=== PATIENT | female | born 2000 ===

== ENCOUNTER 2025-02-21 12:16 | Outpatient (AMB) | payer OTHER, SELFPAY ==
--- NOTE | 2025-02-21 12:34 | AM.OFFWIN_ITS ---
Intake Vital Signs 02/21/25 12:42 Height 5 ft 1 in Weight 105 lb BMI 19.8 BP 132/70 Blood Pressure Location Rt brachial Position Sitting Pulse 133 H Pulse Source Pulse Oximeter Temp 98.2 F Temp Source Oral Pulse Oximetry (%) 98 Oxygen Delivery Method Room Air Intake Visit Reasons: [employer] Tick bite Allergies amoxicillin Allergy (Mild, Verified 02/21/25 12:46) Rash Do you need a note to return to daycare/school/sports/work: No HPI HPI Comments History of Present Illness Details History - The patient is a 24-year-old female pr esenting with concerns of a tick bite. - The patient noticed a tick on her skin approximately two hours prior to the visit. - The tick was described as the size of a poppy seed and was still moving when removed. - The patient did not observe any blood or bloating in the tick, suggesting it had not bitten deeply. - The patient expressed concern about Ly me disease but was reassured as there was no evidence of skin penetration by the tick. - She denies bleeding, fever, chills, ra shes, joint pain, or other bites. Physical Exam General: Cooperative, healthy appearing, comfortable, no acute distress and well developed Respiratory: Normal respiratory effort and able to speak in complete sentences. Skin: Small less than a cm superficial spot noted on the right pelvic brim. No open area noted. No bleeding noted. No TTP of the area. Patient was informed and verbally consented to the use of an ambient scribe for clinic note documentation during this visit. Review of Systems Const All systems reviewed & are unremarkable except as noted in HPI and below Physical Exam Vital Signs: Last Vital Signs Temp 98.2 F 02/21/25 12:42 Pulse 133 H 02/21/25 12:42 BP 132/70 02/21/25 12:42 Pulse Ox 98 02/21/25 12:42 Oxygen Delivery Method Room Air 02/21/25 12:42 BMI result Body Mass Index 19.8 Assessment & Plan Assessment & Plan (1) Tick bite: Code(s): W57.XXXA - Bitten or stung by nonvenomous insect and other nonvenomous arthropods, initial encounter Qualifiers: Encounter type: initial encounter Site of tick bite: pelvic region Qualified Code(s): S30.860A - Insect bite (nonvenomous) of lower back and pelvis, initial encounter; W57.XXXA - Bitten or stung by nonvenomous insect and other nonvenomous arthropods, initial encounter Plan Most likely tick exposure 1. Tick Bite - Monitor for symptoms such as bullseye rash, fever, chills, body aches, or joint pain. - No prophylactic treatment for Lyme disease was deemed necessary as there was no evidence of skin penetration by the tick. Coding Level of Care Code New Pt Level 3 (83815) Diagnoses Tick bite of pelvic region, initial encounter S30.860A; W57.XXXA Encounter type: initial encounter Site of tick bite: pelvic region
[2025-02-21 12:42] VITALS: BP 132/70; PULSE 133; TEMP 36.8; O2SAT 98; BMI 19.8
--- OUTSIDE RECORDS SUMMARY | 2025-02-21 13:28 | XMS_ITS | Data Portability ---
Author Organization [facility], [address] Address [address] [place] [address] Assessment Encounter Date Assessment Date Assessment LastModified by Organization Details LastModified Time 12/17/2023 12/17/2023 Please obtain imaging of right hand Please take ibuprofen and tylenol as needed for pain [email or web address] Not available 12/17/2023 20:07:45 Plan of Treatment Reminders Order Date Submit Date Provider Last Modified By Organization Details Last Modified Time Details Appointments None recorded. Lab None recorded. [facility] 14:49:54 Procedures None recorded. Surgeries None recorded. Imaging XR, hand, 3 or more view 2023 024 [email or web address], [address] [place] [address], [address], 4 08:25:05 XR, hand, 3 or more view - right hand , right pinky finger pain, injury, bruising and obvious deformity 2023 024 [email or web address] [place], [address] [facility], [address], [address], 4 08:25:05 Medication Orders fexofenadi ne-pseudoe phedrine ER 180 mg-240 mg tablet,ext .release 24 hr 2022 023 [facility], [address] [place], [address], 4 19:18:29 prednisone 20 mg tablet 2022 023 [facility], [address] [place], [address], 19:18:31 Allergy Relief (fluticaso ne) 50 mcg/actuat ion nasal spray,susp ension 2022 023 [facility], [address] [place], [address], 19:18:26 Patient TargetsNo targets recorded. Patient Instructions Encounter Date Encounter Id Patient Instructions Last Modified By Organization Details Last Modified Time 02/09/2023 [id number] earache: care instructions [email or web address] Not available 02/09/2023 09:15:16 ear infection (otitis media): care instructions Not available 02/09/2023 09:15:16 Sinusitis is an infection of the lining of the sinus cavities in your head. Sinusitis often follows a cold. It causes pain and pressure in your head and face. In most cases, sinusitis gets better on its own in 1 to 2 weeks. But some mild symptoms may last for several weeks. Sometimes antibiotics are needed. if you are having problems. It's also a good idea to know your test results and keep a list of the medicines you take. How can you care for yourself at home? Take an worc-phn-tkgkfry pain medicine. Avoid Ibuprofen, Aleve and Aspirin if . If the doctor prescribed antibiotics, take them as directed. Do not stop taking them just because you feel better. You need to take the full course of antibiotics. Be careful when taking ltgz-rte-fgzjjjh cold or influenza (flu) medicines and Tylenol at the same time. Many of these medicines have acetaminophen, which is Tylenol. Read the labels to make sure that you are not taking more than the recommended dose. Too much acetaminophen (Tylenol) can be harmful. Breathe warm, moist air from a steamy shower, a hot bath, or a sink filled with hot water. Avoid cold, dry air. Using a humidifier in your home may help. Follow the directions for cleaning the machine. Use saline (saltwater) nasal washes. This can help keep your nasal passages open and wash out mucus and bacteria. You can buy saline nose drops at a grocery store or drugstore. Or you can make your own at home by adding 1 teaspoon (5 millilitres) of salt and 1 teaspoon (5 millilitres) of baking soda to 2 cups (500 mL) of distilled water. If you make your own, fill a bulb syringe with the solution, insert the tip into your nostril, and squeeze gently. Blow your nose. Put a hot, wet towel or a warm gel pack on your face 3 or 4 times a day for 5 to 10 minutes each time. Try a decongestant nasal spray like oxymetazoline (Drixoral). Do not use it for more than 3 days in a row. Using it for more than 3 days can make your congestion worse. 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 Procedures Surgical History Date Name Laterality Status Provider Name and Address Organization Details Recorded Time procedure on wrist completed IKE STARK PA - [facility] 02/09/2023 08:30:37 procedure on lower leg completed IKE STARK PA - [facility] 02/09/2023 08:30:59 Imaging Results None recorded. Procedure Notes None recorded. Medical Equipment None Reported. Allergies Allergen ID Allergen Name Allergen Category Reaction Reaction Severity Criticality Documentation Date Start Date Code Code System Note Provider Name and Address Organization Details Recorded Time 347690 amoxicill in medicatio n rash Not available Not available 02/09/2023 723 RxNorm IKE STARK [facility] PA - [facility] 3 08:29:37 Medications Name Sig Start Date Stop Date Status Note LastModified by Organization Details LastModified Time prednisone 20 mg tablet Take 2 tablets every day by oral route with meals for 3 days. 12/16 completed Not Available Not Available Not Available fexofenadin e-pseudoeph edrine ER 180 mg-240 mg tablet,ext. release 24 hr Take 1 tablet every day by oral route in the evening for 10 days. 12/16 completed Not Available Not Available Not Available rizatriptan 10 mg prn migraines active Not Available Not Available No t Available Ventolin HFA active Not Available Not Available Not Available (21) active Not Available Not Available Not Available Allergy Relief (fluticason e) 50 mcg/actuati on nasal spray,suspe nsion [place] 1 spray every day by intranasa l route as directed for 30 days. 12/16 completed Not Available Not Available Not Available Vitals Date Recorded Body height Body mass index (BMI) Body weight Respiratory rate Body temperature Oxygen saturation Oxygen saturation in Arterial blood by Pulse oximetry Heart rate Systolic blood pressure Diastolic blood pressure Provider Name and Address Organization Details Last Updated DateTime 4 160.02 cm 20.4 kg/m2 07774.1 2 g 16 /min 97.7 [degF] 100 % 100 % 80 /min 117 mm[Hg] 70 mm[Hg] RO WEBSTER PA - [facility] 4 19:21:03 Date Recorded Body height Body mass index (BMI) Body weight Oxygen saturation Oxygen saturation in Arterial blood by Pulse oximetry Heart rate Respiratory rate Body temperature Systolic blood pressure Diastolic blood pressure Provider Name and Address Organization Details Last Updated DateTime 3 160.02 cm 20.4 kg/m2 87715.1 2 g 100 % 100 % 86 /min 18 /min 97.9 [degF] 121 mm[Hg] 82 mm[Hg] IKE STARK [facility] 3 08:33:57 Social History Question Answer Notes LastModified by [employer] Details LastModified Time Tobacco Smoking Status Never Smoker IKE rider [facility] 02/09/2023 08:31:38 Have You Had Direct Contact, Or Contact During Intimacy, With Monkeypox Rash, Scabs, Or Body Fluids From A Person With Monkeypox? No Information not available 02/09/2023 Have You Recently Traveled Abroad? No Information not available 02/09/2023 Are You Currently In School? Yes Information not available 02/09/2023 Sex: Unknown Functional Status Question Answer Note LastModified by [employer] Details LastModified Time Do you use any illicit or recreational drugs? No Information not available 02/09/2023 Do you or have you ever used any other forms of tobacco or nicotine? No Information not available 02/09/2023 What is your level of alcohol consumption? None Information not available 02/09/2023 Are you currently employed? Yes Information not available 02/09/2023 Mental Status None recorded. Family History Relationship Description Onset Age of this Age Resolved Age Notes LastModified by Organization Details LastModified Time Father No current problems or disability Not available 03/2023 08:30:26 Mother No current problems or disability Not available 03/2023 08:30:26 Medical History No medical history recorded. Gynecological History Statement/Question Response Date of LMP 12/04/2023 Is there any chance of ? No LMP Definite Obstetrics History GPAL:G 0 P 0 0 0 0 Immunizations Vaccine Type Date Status Note Provider Nam e and Address Organization Details Recorded Time meningococcal B, recombinant 1 completed IKE GOODANGIEND null, PA - [facility] 02/09/2023 08:29:29 meningococcal B, recombinant 2 completed IKE ELKINSND null, PA - [facility] 02/09/2023 08:29:29 HPV9 3 completed IKE ELKINSND null, PA - [facility] 02/09/2023 08:29:29 HPV9 2 completed IKE STARK null, PA - [facility] 02/09/2023 08:29:29 Influenza, MDCK, quadrivalent, PF 8 completed IKE STARK null, PA - [facility] 02/09/2023 08:29:29 COVID-19, mRNA, LNP-S, PF, 30 mcg/0.3 mL dose 2 completed IKE ELKINSND null, PA - [facility] 02/09/2023 08:29:29 COVID-19, mRNA, LNP-S, PF, 30 mcg/0.3 mL dose 1 completed IKE WICKHIND null, PA - [facility] 02/09/2023 08:29:29 COVID-19, mRNA, LNP-S, PF, 30 mcg/0.3 mL dose 1 completed IKE ELKINSND null, PA - [facility] 02/09/2023 08:29:29 COVID-19, mRNA, LNP-S, bivalent, PF, 30 mcg/0.3 mL dose 2 completed IKE ELKINSND null, PA - [facility] 02/09/2023 08:29:29 Hep A, ped/adol, 2 dose 5 completed IKE ELKINSND null, PA - [facility] 02/09/2023 08:29:29 Hep A, ped/adol, 2 dose 6 completed IKE STARK null, PA - [facility] 02/09/2023 08:29:29 meningococcal MCV4P 8 completed IKE STARK null, PA - [facility] 02/09/2023 08:29:29 Influenza, split virus, quadrivalent, PF 9 completed IKE STARK null, PA - [facility] 02/09/2023 08:29:29 Influenza, split virus, quadrivalent, PF 0 completed IKE STARK null, PA - [facility] 02/09/2023 08:29:29 Influenza, split virus, quadrivalent, PF 1 completed IKE STARK null, PA - [facility] 02/09/2023 08:29:29 Influenza, split virus, quadrivalent, PF 2 completed IKE STARK null, PA - [facility] 02/09/2023 08:29:29 Influenza, split virus, quadrivalent, PF 5 completed IKE STARK null, PA - [facility] 02/09/2023 08:29:29 Influenza, split virus, quadrivalent, PF 7 completed IKE STARK null, PA - [facility] 02/09/2023 08:29:29 Influenza, split virus, quadrivalent, PF 6 completed IKE ELKINSND null, PA - [facility] 02/09/2023 08:29:29 Past Encounters Encounter ID Performer Location Encounter Start Date Encounter Closed Date Diagnosis/Indication Diagnosis SNOMED-CT Code Diagnosis ICD10 Code Diagnosis Note [id number] [address] [place] [address] 09/21/2016 18:12:39 09/21/2016 19:13:58 [id number] [address] [place] [address] 06/18/2016 18:18:55 06/18/2016 19:05:48 [id number] [address] [place] [address] 06/21/2016 16:27:05 06/21/2016 16:47:15 [id number] [address] [place] [address] 05/16/2022 09:41:22 05/16/2022 10:05:37 [id number] [address] [place] [address] 06/12/2020 14:24:46 06/12/2020 15:46:09 [id number] [address] [place] [address] 10/06/2019 11:28:14 10/06/2019 11:57:46 [id number] [address] [place] [address] 11/18/2019 09:14:26 11/18/2019 09:46:15 [id number] [address] [place] [address] 10/17/2019 08:53:30 10/17/2019 09:19:33 [id number] [address] [place] [address] 10/09/2019 08:52:36 10/09/2019 09:38:37 [id number] [address] [place] [address] 11/17/2019 11:35:44 11/17/2019 12:12:01 [id number] [address] [place] [address] 09/09/2019 08:49:40 09/09/2019 09:22:33 [id number] Nicolas Mathew NP [address] [place] [address] 02/09/2023 08:11:58 02/09/2023 09:22:25 Acute sinusitis 72562566 J01.90 [id number] [place] [address] [place] [address] 12/17/2023 17:55:49 12/21/2023 14:49:53 Injury of finger 81236826 S69.91XA Pain in finger 23723696 M79.644 Health Concerns Section Related Observation LastModified by Organization Detai ls LastModified Time None Recorded Concern Status LastModified by Organization Details LastModified Time None Recorded Advance Directives Directive None Recorded Payers Insurance Date Sequence Insurance Name Policy Number Policy Flowers Covered Member ID Flowers Member ID Guarantor Name 12/17/2023 1 [facility] (MEDICAID REPLACEMENT - HMO) JALENO Ca Maria [id number] Ca Maria 12/17/2023 1 [facility] [employer] [facility] TOGETHER WITH [facility] (MEDICAID HMO) [id number] Ca Maria [id number] Ca Maria 12/17/2023 2 [facility] PLAN (MEDICAID HMO) Ca Maria [id number] Ca Maria Notes Date Note Type Note Provider Name and Address Organization Details Recorded Time 02/09/2023 text/html CongestionReport ed bypatient.Notes:nasal congestion with post nasal drip x 3 days. denies nay fever or fever with chills. no SOB or respiratory distress.Ear Pain Brief HPIReported bypatient.Location:pain radiates to neck; bilateral Onset/Timing:intermitte nt pain; gradual onset Duration:occurs daily; sensation/episode variable length Quality:aching pain;sharp pain Severity:getting worse; current pain 5/10 Context:recent ear infection Alleviating factors:ototopical antibiotics: ; nasal steroid spray Aggravating factors:sinus infections; allergies; irrigation of ear Associated Symptoms:Cough;nasal congestion;nasal discharge Nicolas Mathew NP [address] [place], [address], [place] - [facility] 02/09/2023 09:15:38 12/17/2023 text/html Finger PainRepor rommel bypatient.source of patient nincuiagnfe1ab finger pain laceration, bruising was playing lacrose, was stuck by another player has mild pain, no tingling or numbness to tip of pinky finger Locationlocation: right; [place];proximal phalanx; pain, deformity, bruising proximal aspect Neurovascular Status:color change in affected finger; no numbness or tingling Symptoms:pain with ROM;swelling;bruising;l aceration/abrasion DON ODOM NP [address] [facility] [place], [address], [facility] 12/17/2023 20:35:47 OBGyn Episode No OBEpisode recorded.
== END 2025-02-21 13:28 | disposition home or self-care (01) ==
PROVIDERS: Visit Provider Physician Assistant Medical
DX: S30.860A Insect bite (nonvenomous) of lower back and pelvis, initial encounter (principal); W57.XXXA Bitten or stung by nonvenomous insect and other nonvenomous arthropods, initial encounter

== ENCOUNTER → 2025-02-21 12:16 | Outpatient (BNVA) | payer OTHER, SELFPAY | PROVIDERS: Visit Provider Physician Assistant Medical | DX: S30.860A Insect bite (nonvenomous) of lower back and pelvis, initial encounter (principal); W57.XXXA Bitten or stung by nonvenomous insect and other nonvenomous arthropods, initial encounter; Y93.9 Activity, unspecified; Y92.9 Unspecified place or not applicable; Y99.9 Unspecified external cause status | CPT/HCPCS: 99202 ==